=== PATIENT | female | born 1945 | race Caucasian/White ===

== ENCOUNTER 2017-08-24 09:19 | Emergency (ER) | payer OTHER ==
[~2017-08-24] VITALS: Ht 160 cm; Wt 53.8 kg
[2017-08-24 11:44] VITALS: BP 156/52
== END 2017-08-24 11:44 | disposition home or self-care (01) ==
LOC: EME 09:19
DX: S51.802A Unspecified open wound of left forearm, initial encounter (principal); W54.1XXA Struck by dog, initial encounter; Z48.00 Encounter for change or removal of nonsurgical wound dressing; F03.90 Unspecified dementia, unspecified severity, without behavioral disturbance, psychotic disturbance, mood disturbance, and anxiety; I10 Essential (primary) hypertension; Z87.891 Personal history of nicotine dependence
CPT/HCPCS: 99281; 99283